=== PATIENT | female | born 2000 | race Hispanic/Latino ===

== ENCOUNTER 2025-02-26 01:17 | Emergency (ER) | payer BC ==
[~2025-02-26] VITALS: Ht 149.9 cm; Wt 59.0 kg
[2025-02-26 01:36] VITALS: TEMP 98.2
[2025-02-26] MEDS: 0.9%NACL 1000ML 1,000 ML IV ONE (01:57)
[2025-02-26 02:01] LABS: IMMATURE GRANULOCYTE ABSOLUTE 0.23 K/uL (0-1); NUCLEATED RED BLOOD CELLS 0.0 % (0.0-0.19); PLATELET COUNT (AUTO) 383 K/uL (130-400); RED BLOOD CELL COUNT(AUTO) 3.45 MIL/uL (4.00-5.50); RED CELL DISTRIBUTION WIDTH 13.1 % (11.0-15.5); WHITE BLOOD COUNT (AUTO) 12.1 K/uL (4.8-10.8)
[2025-02-26 02:12] LABS: CREATININE 0.5 mg/dL (0.5-1.0); GLOMERULAR FILTR. RATE CALC 133.0 mL/min (>90); GLUCOSE,RANDOM 94.0 mg/dL (70-105); SODIUM SERUM 134.0 mmol/L (136-145); UREA NITROGEN, BLOOD 7.0 mg/dL (7-18)
--- NOTE | 2025-02-26 03:00 | HMCIMG ---
EXAM: US Obstetrical, Complete <14 weeks CLINICAL HISTORY: VAGINAL BLEEDING TECHNIQUE: Transabdominal imaging of the maternal pelvis and a < 14-week gestation with image documentation. COMPARISON: None provided. FINDINGS: GESTATION: Single intrauterine gestational sac with CRL-8.45 cm corresponding to 14 weeks 3 days. heart rate: 151 bpm. UTERUS: Unremarkable. No myometrial mass. A gravid uterus is identified, measuring 13.7 x 6.8 x 10.0 cm. The placenta is forming anteriorly. CERVIX: Closed. Unremarkable. OVARIES: Unremarkable. No mass. Normal-sized bilateral ovaries. No adnexal mass. Right ovary measures 2.4 x 1.6 x 2.3 cm The left ovary measures 2.3 x 1.5 x 2.2 cm with normal vascularity. FREE FLUID: No free fluid. IMPRESSION: Single live intrauterine with CRL-8.45 cm corresponding to 14 weeks 3 days. No acute abnormality. /[place]
--- NOTE | 2025-02-26 03:20 | ERN ---
ED Note History of Present Illness Stated Complaint: VAGINAL BLEEDING Chief Complaint: Vaginal Problems/Bleeding Time Seen by MD: 01:20 Dictation: This is a 24-year-old female who presented to the emergency room with complaints of vaginal bleeding that has been going on off and on for the past 2 weeks. She is 13.6 weeks and she stated that most of the vaginal bleeding is not with clots and it does not soak the pad. Her regular OB gave an appointment in March however patient and her spouse were concerned and came into the ER for further evaluation. History of any trauma no falls no fever chills or rigors. No nausea vomitings. Temperature 98.2 pulse 94 respirations 20 blood pressure 121/52 with a pulse oximetry of 99% on room air Allergies: Coded Allergies: No Known Allergies (Unverified Allergy, Unknown, 02/26/25) Past Medical History Past Medical History: No Pertinent History Surgical History: None Family History: Negative Social History: Negative LMP: Nov 21, 2024 : 1 RN Note Reviewed/Agreed w/PFSH: Yes Review of System Dictation Constitutional: Negative for fever,chills, and weight loss Eyes: Negative for injury, pain,redness, and discharge ENT: Negative for injury,pain or swelling Cardiovascular: Negative for chest pain, palpitations, and edema Respiratory: Negative for shortness of breath, cough, and wheezing, Abdomen/GI: Negative for abdominal pain, nausea, vomiting, diarrhea, and constipation Back: Negative for injury and pain : Negative for injury, bleeding and discharge positive for vaginal bleeding positive for 13.6 weeks MS/Extremity: Negative for injury and deformity Skin: Negative for rash, and discoloration Neuro: Negative for headache, weakness, numbness, tingling, and seizure Psych: Negative for suicide ideation, homicidal ideation, and hallucinations Initial Vital Sign VS Vital Signs Date Time Temp Pulse Resp B/P (MAP) Pulse Ox O2 Delivery O2 Flow Rate FiO2 02/26/25 01:19 98.2 94 20 121/52 99 Room Air 02/26/25 01:36 0 21 Physical Exam Dictation General: awake, alert, NAD anxious Head/Face: Normocephalic, atraumatic Eyes: PERRL, EOMI, vision at baseline ENT: oral cavity clear, TMs clear, no signs of infection Neck: Trachea midline, supple, no nuchal rigidity Cardiovascular: RRR, normal S1/S2, No MRGs, no JVD Respiratory: CTAB, no respiratory distress, No rales or wheezes Abdomen: Soft, non-tender, non-distended, normal bowel sounds, no guarding or rebound. -very minor spotting from vagina Skin: Warm, dry, normal turgor, no rash MS/Extremity: Pulses equal, no cyanosis, neurovascular intact, FROM Neuro: COAx4, GCS 15, strength 5/5, CN 2-12 intact, normal cerebellar exam, normal gait, Psych: Normal behavior, mood, and affect normal Extremities-trace edema without any palpable cords, Homans sign is negative Results (Laboratory/Radiology) Laboratory/Radiology Laboratory Tests Test 02/26/25 01:57 White Blood Count 12.1 K/uL (4.8-10.8) H Red Blood Count 3.45 MIL/uL (4.00-5.50) L Hemoglobin 11.1 g/dL (12.0-16.0) L Hematocrit 32.6 % (36-48) L Mean Corpuscular Volume 94.5 fL (79-99) Mean Corpuscular Hemoglobin 32.2 pg (27.0-33.0) Mean Corpuscular Hemoglobin Concent 34.0 g/dL (32.0-36.0) Red Cell Distribution Width 13.1 % (11.0-15.5) Platelet Count 383 K/uL (130-400) Mean Platelet Volume 11.3 fL (7.5-10.5) H Immature Granulocyte % (Auto) 1.9 % (0-1) H Neutrophils (%) (Auto) 72.8 % (40.0-77.0) Lymphocytes (%) (Auto) 15.2 % (21.0-51.0) L Monocytes (%) (Auto) 8.9 % (3.0-13.0) Eosinophils (%) (Auto) 0.8 % (0.0-8.0) Basophils (%) (Auto) 0.4 % (0.0-5.0) Neutrophils # (Auto) 8.8 K/uL (1.8-7.7) H Lymphocytes # (Auto) 1.8 K/uL (1.0-4.8) Monocytes # (Auto) 1.1 K/uL (0.1-1.0) H Eosinophils # (Auto) 0.10 K/uL (0.00-0.70) Basophils # (Auto) 0.05 K/uL (0.00-0.20) Absolute Immature Granulocyte (auto 0.23 K/uL (0-1) Nucleated Red Blood Cells 0.0 % (0.0-0.19) Sodium Level 134 mmol/L (136-145) L Potassium Level 3.6 mmol/L (3.5-5.1) Chloride Level 100 mmol/L (101-111) L Carbon Dioxide Level 23 mmol/L (21-32) Blood Urea Nitrogen 7 mg/dL (7-18) Creatinine 0.5 mg/dL (0.5-1.0) Glomerular Filtration Rate Calc 133 mL/min (>90) Random Glucose 94 mg/dL (70-105) Total Calcium 8.9 mg/dL (8.5-10.1) Serum Test, Qualitative POSITIVE (NEGATIVE) H Labs Reviewed?: Yes Ultrasound Comment: REASON: VAGINAL BLEEDING ORDERING PHYSICIAN: MEGAN MANUEL MD PROCEDURE: OB <14 - US OB <14 WEEKS EXAM: US Obstetrical, Complete <14 weeks CLINICAL HISTORY: VAGINAL BLEEDING TECHNIQUE: Transabdominal imaging of the maternal pelvis and a < 14-week gestation with image documentation. COMPARISON: None provided. FINDINGS: GESTATION: Single intrauterine gestational sac with CRL-8.45 cm corresponding to 14 weeks 3 days. heart rate: 151 bpm. UTERUS: Unremarkable. No myometrial mass. A gravid uterus is identified, measuring 13.7 x 6.8 x 10.0 cm. The placenta is forming anteriorly. CERVIX: Closed. Unremarkable. OVARIES: Unremarkable. No mass. Normal-sized bilateral ovaries. No adnexal mass. Right ovary measures 2.4 x 1.6 x 2.3 cm The left ovary measures 2.3 x 1.5 x 2.2 cm with normal vascularity. FREE FLUID: No free fluid. IMPRESSION: Single live intrauterine with CRL-8.45 cm corresponding to 14 weeks 3 days. No acute abnormality. /[place] DICTATED BY: JACQUI BROWN Jr., MD DATE: 02/26/25399 ELECTRONICALLY SIGNED BY: JACQUI BROWN Jr., MD DATE: 02/26/25399 ED Course ED Course Orders Procedure Category Date Status Time Cbc With Differential LAB 02/26/25 Complete 01:30 Testing, LAB 02/26/25 Complete Serum Hcg 01:30 Ob <14 Weeks US 02/26/25 Resulted 01:30 0.9%Nacl 1000ml (Ns PHA 02/26/25 Complete 1000ml) 01:30 Basic Metabolic Panel LAB 02/26/25 Complete 01:30 Current Medications Medications (Trade) Dose Ordered Sig/Casey Route PRN Reason Start Time Stop Time Status Last Admin Dose Admin Sodium Chloride 1,000 ml @ 0 mls/hr ONCE ONCE IV 02/26/25 01:30 02/26/25 01:37 DC 02/26/25 01:57 Vital Signs Date Time Temp Pulse Resp B/P (MAP) Pulse Ox O2 Delivery O2 Flow Rate FiO2 02/26/25 04:01 98 18 119/55 99 Room Air* 0 21 02/26/25 02:26 115 18 111/67 99 Room Air* 0 21 02/26/25 01:36 98.2 114 21 138/67 99 Room Air* 0 21 02/26/25 01:19 98.2 94 20 121/52 99 Room Air Medical Decision Making MDM Differential diagnosis: Vaginitis, hormonal fluctuations, implantation bleeding, subchorionic hemorrhage with the, Emelia previa, threat of This is a 24-year-old female who presented to the emergency room with complaints of vaginal bleeding that has been going on off and on for the past 2 weeks. She is 13.6 weeks and she stated that most of the vaginal bleeding is not with clots and it does not soak the pad. Her regular OB gave an appointment in March however patient and her spouse were concerned and came into the ER for further evaluation. History of any trauma no falls no fever chills or rigors. No nausea vomitings. Temperature 98.2 pulse 94 respirations 20 blood pressure 121/52 with a pulse oximetry of 99% on room air 2:40 a.m. labs reviewed CBC showed a white count of 12.1 hemoglobin 11.1 platelets 383. BNP 7 is with a normal limits glucose of 133. test is positive 3:15 a.m. Ob ultrasound was totally normal with a single live fetus and cervix was closed and there was no abnormal findings. I updated the patient and her on the findings answered their questions and recommended that they follow up with the Ob. Rationale: Tests considered and ordered secondary to shared decision making include: Labs and urinalysis Previous outside records reviewed: Old ER visits. Risk of complication and/or morbidity or mortality of patient management: None Medications-Per medication reconciliation Need for hospitalization: Patient does not meet criteria for hospitalization. Need for emergency major/minor surgery: No There are no social concerns with this patient. Prescription drug management Prescriptions will include symptomatic care Patient's prior external medical records from other ER visits were reviewed by me as indicated. Prior testing and results from previous visits were reviewed. Prior tests were taken into account with medical decision making and resource utilization, independent historian/historians were used to obtain complete medical history. I independently interpreted the test that were performed, results were reviewed by me and considered findings on radiology if ordered. Medical management and examination interpretation discussions were had by me with other qualified healthcare professionals as indicated for the patient's care. Problem List Problem List: (1) Vaginal bleeding before 22 weeks gestation DX & DISP Disposition: Discharge Departure Impression: Primary Impression: Vaginal bleeding before 22 weeks gestation Condition: Stable Additional Instructions: Patient and the caregiver have been informed of all the diagnostic tests and the imaging conducted during the today's visit to the emergency room and has verbalized understanding of the results I have personally reviewed and interpreted all diagnostic exams performed here in the ER today as well as the vital signs documented by the nursing staff. The patient is now being discharged to home and should follow up with the primary care physician or the specialist as directed by the ER staff. Referrals: DEBORAH LANIER DO (PCP) MEGAN MANUEL MD Feb 26, 2025 03:20
[2025-02-26 04:01] VITALS: BP 119/55; PULSE 98; RESP 18; O2SAT 99
== END 2025-02-26 04:09 | disposition home or self-care (01) ==
LOC: EDH 01:17
DX: O20.9 Hemorrhage in early pregnancy, unspecified (principal); Z3A.13 13 weeks gestation of pregnancy
CPT/HCPCS: 99284; 76801; 80048; 84703; 85025; 36415; J7030